=== PATIENT | female | born 1975 | race Caucasian/White ===

== ENCOUNTER 2019-12-04 13:36 | Outpatient (RCR) | payer OTHER, SELFPAY ==
--- NOTE | 2019-08-08 14:39 | PCPTNOTE ---
The treatment documented on this account is a continuation of the treatment documented on visit number [id number]. Please see documentation on both accounts to view progress. The Plan of Care has been transitioned and updated within the new V#. I have addressed and agree with the discipline specific Problems, Interventions, and Goals for the current certification period. Completed interventions, outcomes, and problems have been marked as Inactive to facilitate the copying of the Care plan routine for recurring accounts.
--- NOTE | 2019-08-13 12:25 | PCPTNOTE ---
Pt has cancelled her remaining appt due to increased pain with exercise. Will plan to DC.
--- NOTE | 2019-08-13 15:19 | PCPTNOTE ---
Attending Provider: GUNNER,ADEN Arndt Patient:Nickie Don Date of :1975 Patient has requested her therapy visits to be cancelled due to therapy is not helping her pain. No therapy goals achieved at this time. Thank you for referring this patient to [facility]. Please review, sign, date and return this discharge summary KARL. I have been updated about the patient's current status and I agree with discharge from the above service at this time. Referring Physician Date
== END 2019-12-04 13:37 | disposition home or self-care (01) ==
LOC: ANHPT 13:36
PROVIDERS: PCP Physician Assistant; Visit Provider Physician Assistant
DX: M25.552 Pain in left hip (principal)
CPT/HCPCS: 97035; 97110

== ENCOUNTER 2020-06-14 08:18 | Outpatient (CLI) | payer OTHER, SELFPAY ==
--- NOTE | ~2020-06-14 | XR_ITS ---
XR lumbar spine 2-3V DATE: 06/14/2020 08:43 INDICATION: Low back pain since February. Fell on back. TECHNIQUE: AP, lateral, coned lateral lumbosacral views COMPARISON: None FINDINGS: There is mild levoscoliosis of the thoracolumbar spine. No fracture or bone destruction is evident. The included lower thoracic and lumbar pedicles are intac t. No fracture or bone destruction or spondylolisthesis. Lumbar and lumbosacral interspaces are well preserved. The sacroiliac joints are intact. IMPRESSION: Mild scoliosis Reviewed, dictated and finalized at location A. IMPRESSION: Mild scoliosis
== END 2020-06-14 08:19 | disposition home or self-care (01) ==
PROVIDERS: PCP Physician Assistant; Visit Provider Physician Assistant
DX: M54.5 Low back pain (principal); M41.86 Other forms of scoliosis, lumbar region
CPT/HCPCS: 72100

== ENCOUNTER 2020-08-19 19:00 | Emergency (ER) | payer OTHER, SELFPAY ==
--- NOTE | ~2020-08-19 | CT_ITS ---
EXAMINATION: CT abdomen pelvis w con DATE: 08/19/2020 21:21 INDICATION: Right-sided abdominal pain TECHNIQUE: Computed tomography (CT) of the abdomen and pelvis was performed with 100 cc Omnipaque 350 intravenous contrast. Automated exposure control and iterative reconstruction technique were employe d. Exam dose: 190.99 mGy-cm total exam DLP. COMPARISON: 09/07/2013 CT abdomen pelvis FINDINGS: Bilateral breast implants are again noted. Normal heart size. No pericardial or pleural effusion. The lung bases are clear. The liver, gallbladder, bile ducts, spleen, pancreas, pancreatic duct, and adrenal glands and kidneys are unremarkable. No urinary tract calculus or hydroureteronephrosis. The urinary bladder is unremar kable. Status post hysterectomy. Normal caliber of the abdominal aorta. No intraperitoneal or retroperitoneal or pelvic mass lesion or adenopathy or ascites. Normal retrocecal appendix. There are fluid distended small bowel segments with some air-fluid levels , primarily in the left lower quadrant. No bowel obstruction is evident. Occasional colonic diverticu la; no CT evidence of diverticulitis. No bowel wall thickening, pneumatosis or intraperitoneal free a ir. The tract of a prior fixation device of the proximal right femur is noted. No suspicious osteolytic o r osteoblastic lesions. IMPRESSION: Normal retrocecal appendix There are some fluid distended nondilated small bowel segments with some air-fluid levels, suggesting possible enteritis; no bowel wall thickening, pneumatosis or intraperitoneal free air Status post hysterectomy Bilateral breast implants Occasional colonic diverticula; no CT evidence of diverticulitis Reviewed, dictated and finalized at [facility]. Reviewed, dictated and finalized at location A. 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
[2020-08-19 19:01] VITALS: BP 128/65; PULSE 66; RESP 18; O2SAT 98
--- NOTE | 2020-08-19 19:19 | ED.GENADULT ---
HPI - General Adult General Chief complaint: Abdominal Pain Stated complaint: abd pain Time Seen by Provider: 08/19/20 19:14 Source: RN notes reviewed History of Present Illness HPI narrative: Patient presents emergency department from home via EMS for abdominal pain. Patient states she has sudden onset of right-sided abdominal pain approximately 1 hour ago. The pain is described as sharp and stabbing and does not radiate. Patient states she is feeling fine prior to this sudden onset of the pain denies any previous history of kidney stone patient was given 100 mcg of fentanyl as well as 4 Zofran by EMS. She denies any fevers or chills chest pain shortness of breath or any other symptoms states she has had previous hysterectomy Related Data Allergies Allergy/AdvReac Type Severity Reaction Status Date / Time latex Allergy Severe Rash Verified 08/19/20 19:06 propoxyphene Allergy Severe RASH Verified 08/19/20 19:06 ciprofloxacin Allergy Unknown Unknown Verified 08/19/20 19:06 meperidine Allergy Unknown Unknown Verified 08/19/20 19:06 tramadol Allergy Unknown BLURRY Verified 08/19/20 19:06 VISION Review of Systems Review of Systems: Narrative: Gen.: Denies fevers or chills ENT: Denies congestion Respiratory: Denies shortness of breath or cough CV: Denies chest pain or palpitations GI: See HPI denies burning, urgency, frequency or hematuria Musculoskeletal: Denies back pain or muscle pain Neuro: Denies numbness, tingling, weakness or focal weakness Skin: Denies rash Except as documented, all other systems reviewed and negative PMF Past Medical History Medical History (Updated 08/19/20 @ 22:51 by Roddy Masters DO) Patient denies significant medical history Surgical History Surgical History (Updated 08/19/20 @ 19:20 by Roddy Masters DO) History of hysterectomy Social History Social History (Updated 08/19/20 @ 19:20 by Roddy Masters DO) Smoking status: Current every day smoker Alcohol intake: never Exam Narrative: Exam Narrative: APPEARANCE: Moderate distress from pain, nontoxic HEENT: Normocephalic, atraumatic, OMM RESPIRATORY: No respiratory distress, clear to auscultation bilaterally with no rhonchi wheezing or rales CARDIOVASCULAR: RRR s murmur ABDOMINAL: Soft, nondistended , tender palpation right upper quadrant and right lower quadrant no tenderness left upper quadrant left lower quadrant no rebound or guarding MUSCULOSKELETAl: Moves all extremities. No clubbing, cyanosis or edema. NEURO: Awake and alert. Following commands, speech normal, no focal deficits SKIN:: Warm, dry. Normal Color PSYCHIATRIC: Normal affect/mood Course Course Emergency Course: CT scan patient's symptoms were sudden in onset question possible kidney stone not seen on CT while there is questionable enteritis with sudden onset and no white count but will send patient home with meds and follow-up with primary care physician do not feel antibiotics are indicated at this time Patient states that they are feeling much better at this time. States abdominal pain has improved. Repeat abdominal exam shows the patient's abdomen to be soft with no surgical abdomen present. Discussed with patient results of workup and diagnosis. Discussed need for follow-up with primary care physician, reasons to return to the emergency department in proper use of medication. Patient understands and agrees to current treatment plan Vital Signs Vital signs: Vital Signs Pulse Rate 66 08/19/20 19:01 Respiratory Rate 18 08/19/20 19:01 Blood Pressure 128/65 08/19/20 19:01 Pulse Oximetry 98 08/19/20 19:01 Pulse Rate 76 08/19/20 22:05 Respiratory Rate 14 08/19/20 22:05 Blood Pressure 113/59 L 08/19/20 22:05 Pulse Oximetry 100 08/19/20 22:05 Medical Decision Making MDM Narrative Medical decision making narrative: Patient's abdomen is soft without significant pain or signs of surgical abdomen on serial exams. Lab a
[2020-08-19] MEDS: KETOROLAC 30 MG/ML VIAL (*BKC) IV PUSH (19:40)
[2020-08-19 20:02] LABS: Basophils Absolute Auto 0.1 K/mm3 (0.0-0.1); Basophils Percent Auto 0.8 % (0.2-1.2); Eosinophils Absolute Auto 0.1 K/mm3 (0-0.3); Eosinophils Percent Auto 2.1 % (0-4.4); Hematocrit 35.2 % (37.0-47.0); Hemoglobin 11.8 g/dL (12.0-15.0); Immature Granulocyte Absolute 0.02 K/mm3 (0.00-0.031); Immature Granulocyte Percent A 0.3 % (0-0.5); Lymphocytes Absolute Auto 2.56 K/mm3 (0.9-3.2); Lymphocytes Percent Auto 41.7 % (18.3-44.2); Mean Corpuscular HGB Conc 33.5 g/dl (32-36); Mean Corpuscular Hemoglobin 30.6 pg (26-34); Mean Corpuscular Volume 91.4 fl (80-100); Mean Platelet Volume 9.4 fl (7.4-10.4); Monocytes Absolute Auto 0.3 K/mm3 (0.1-0.6); Monocytes Percent Auto 4.6 % (2.6-8.5); Neutrophils Absolute Auto 3.1 K/mm3 (1.3-6.7); Neutrophils Percent Auto 50.5 % (45.5-73.1); Platelet Count Result 282 k/mm3 (150-375); Red Blood Count 3.85 M/mm3 (4.2-5.4); Red Cell Distribution Width 12.9 % (11.5-14.5); White Blood Count 6.1 K/mm3 (4.5-10.0)
[2020-08-19 20:15] LABS: Alanine Aminotransferase 9 U/L (4-35); Albumin Level 4.2 g/dL (3.5-5.1); Alkaline Phosphatase 61 U/L (38-126); Anion Gap 8 mmol/L (8-16); Aspartate Amino Transferase 27 U/L (14-36); Bilirubin,Total 0.2 mg/dL (0.2-1.3); Blood Urea Nitrogen 12 mg/dL (7-17); Calcium 9.1 mg/dL (8.4-10.2); Carbon Dioxide 26 mmol/L (22-30); Chloride 108 mmol/L (98-107); Estimated CRCL calculation 44 ml/min; Estimated Glomerular Filt Rate 54; Glucose 91 mg/dL (65-105); Lipase 77 U/L (23-300); Potassium 3.8 mmol/L (3.4-5.0); Sodium 142 mmol/L (137-145)
[2020-08-19] MEDS: MORPHINE SULFATE (*CRX) 4 MG/ML INJ IV PUSH (20:45)
--- NOTE | 2020-08-19 20:48 | PC.NURSE ---
morphine given as ordered. patient laying prone on bed playing games on her phone. c/o abdomen pain. SO in room. med given. patient needs to void. refuses to go to restroom. wants to use bedpan herself. bedpan given. call light in reach.
--- NOTE | 2020-08-19 20:57 | PC.NURSE ---
urine specimen collected and sent to lab.
[2020-08-19 21:10] LABS: Add Urine Microscopic? YES; Appearance Urine Clear (Clear); Bacteria Urine Trace /hpf; Bilirubin Urine Negative (Negative); Blood Urine Negative (Negative); Color Urine Straw (Yellow); Glucose Urine UA Negative (Negative); Ketones Urine Negative (Negative); Leukocyte Esterase Ur Negative LEU/UL (Negative); Mucus Urine Rare /lpf; Nitrate Urine Negative (Negative); Protein Urine Negative (Negative); RBC Urine 0-2 /hpf (0-2); Specific Grav Ur 1.008 (1.001-1.035); Squamous Epithelial Cell Urine Moderate /hpf (Few); Urobilinogen Urine Negative mg/dL (<2.0); WBC Urine 0-3 /hpf
[2020-08-19] MEDS: DICYCLOMINE HCL INJ 20 MG/2 ML VIAL IM (22:02)
[2020-08-19 22:05] VITALS: BP 113/59; PULSE 76; RESP 14; O2SAT 100
--- NOTE | 2020-08-19 22:48 | PC.NURSE ---
Dr. Masters at bedside to discuss results with pt.
== END 2020-08-19 23:04 | disposition home or self-care (01) ==
PROVIDERS: Emergency Provider Emergency Medicine; PCP Physician Assistant
DX: R10.9 Unspecified abdominal pain (principal)
CPT/HCPCS: 36415; 74177; 80053; 81001; 83690; 85025; 96372; 96374; 96375; 99284; J0500; J1885; J2270; Q9967

== ENCOUNTER 2021-06-19 12:09 | Emergency (ER) | payer OTHER, SELFPAY ==
--- NOTE | 2021-06-19 12:12 | ED.SKABFB ---
HPI - Skin/Abscess/Foreign Bdy General Chief complaint: Skin/Abscess/Foreign Body Stated complaint: Possible Poison Lulu/Want a shot for poison lulu Time Seen by Provider: 06/19/21 12:12 Source: patient and RN notes reviewed History of Present Illness HPI narrative: Patient is a 46-year-old female who presents the urgent care with complaints of poison lulu to her back, bilateral arms, neck and face. Patient states that she came in contact with her on Tuesday and her physician told her to go to urgent care for her poison lulu shot . Patient states that she cannot take oral prednisone due to severe reaction causing increased blood pressure and heart rate. Patient states that she is always done well with the injections. Patient states that she takes allergy medication 4 times per day and has been using IV dry without much relief. No other acute complaints. No acute distress noted. Patient aware of the plan of care. Some parts of this dictation were generated by voice recognition software and may contain typographical and/or grammatical inaccuracies. Related Data Home Medications Medication Instructions Recorded Confirmed cyclobenzaprine mg 06/19/21 estradiol mg 06/19/21 gabapentin 06/19/21 hydroxyzine pamoate 06/19/21 omeprazole 06/19/21 sumatriptan succinate mg PO 06/19/21 topiramate 06/19/21 trazodone 06/19/21 Allergies Allergy/AdvReac Type Severity Reaction Status Date / Time latex Allergy Severe Rash Verified 06/19/21 12:24 propoxyphene Allergy Severe RASH Verified 06/19/21 12:24 ciprofloxacin Allergy Unknown Unknown Verified 06/19/21 12:24 meperidine Allergy Unknown Unknown Verified 06/19/21 12:24 tramadol Allergy Unknown BLURRY Verified 06/19/21 12:24 VISION Review of Systems Review of Systems: CONSTITUTIONAL: Denies fever, chills, or sweats. EYES: Denies visual changes, redness, or discharge. ENT: Denies rhinorrhea, congestion, sore throat, or otalgia. CARDIOVASCULAR: Denies chest pain, palpitations, or edema. RESPIRATORY: Denies cough or dyspnea. GASTROINTESTINAL: Denies abdominal pain, nausea, vomiting, or diarrhea. GENITOURINARY: Denies dysuria or hematuria. SKIN: Reports of poison lulu to the neck, face, back and bilateral extremities MUSCULOSKELETAL: Denies back pain, joint pain, or myalgia. NEUROLOGIC: Denies headache, numbness, or weakness. All other systems reviewed are negative, except as documented in HPI. [facility] Past Medical History Medical History (Updated 06/19/21 @ 12:36 by JABIER Barton) Patient denies significant medical history Surgical History Surgical History (Updated 08/19/20 @ 19:20 by Roddy Masters DO) History of hysterectomy Social History Social History (Updated 08/19/20 @ 19:20 by Roddy Masters DO) Smoking status: Current every day smoker Alcohol intake: never Comments At the time of my signature, I reviewed and agree with the nursing past medical, surgical, social, and family history. There is no relevant family history pertinent to the patient complaint. Exam Narrative: GENERAL: This is a well-nourished, well-developed patient, in no apparent distress. HEAD: normocephalic, atraumatic. EYES: PERRL. Sclera clear/white. Vision is grossly intact. EARS: External ears normal NOSE: External nose normal with no obvious nasal discharge, nares without redness, no rhinorrhea. THROAT: Mucous membranes moist NECK: Neck supple CARDIOVASCULAR: Regular rate and rhythm without murmurs, gallops, or rubs. RESPIRATORY: Clear to auscultation. Breath sounds equal bilaterally. No wheezes, rales, or rhonchi. SKIN: Scattered papular erythemic raised dermatitis noted to the lower back, chin, and bilateral extremities. Warm, intact with no suspicious lesions or rash, good texture and turgor. NEURO: awake, alert, and oriented to person, place and time. There were no obvious focal neurologic abnormalities. EXTREMITIES: No clubbing, cyanosis, or edema. Cours
[2021-06-19 12:16] VITALS: BP 79/65; PULSE 84; RESP 18; TEMP 36.1; O2SAT 100
[2021-06-19] MEDS: methylPREDNISolone ACETATE 80 MG/ML VIAL IM (12:39)
== END 2021-06-19 13:00 | disposition home or self-care (01) ==
PROVIDERS: Emergency Provider Nurse Practitioner Family; PCP Physician Assistant
DX: L23.7 Allergic contact dermatitis due to plants, except food (principal); F17.200 Nicotine dependence, unspecified, uncomplicated; I10 Essential (primary) hypertension; K21.9 Gastro-esophageal reflux disease without esophagitis; Z85.42 Personal history of malignant neoplasm of other parts of uterus
CPT/HCPCS: 96372; 99213; G0463; J1040

== ENCOUNTER 2023-07-05 18:23 | Outpatient (CLI) | payer SELFPAY ==
--- NOTE | ~2023-07-05 | XR_ITS ---
XR mandible min 4V 07/05/2023 18:50 Indication: Bilateral ear pain for 2 months Procedure: 4 views of the mandible Comparison: No prior studies for comparison. Findings: No fracture, subluxation or dislocation. Temporomandibular joints are symmetric. Mandible i ntact. Mastoids are pneumatized. Paranasal sinuses are pneumatized. Orbits are symmetric. Impression: 1: No significant abnormality of the mandible identified. Reviewed, dictated and finalized at location B. Impression: 1: No significant abnormality of the mandible identified.
== END 2023-07-05 18:24 | disposition home or self-care (01) ==
LOC: CHSIMG 18:28
PROVIDERS: PCP Physician Assistant; Visit Provider Physician Assistant
DX: M26.622 Arthralgia of left temporomandibular joint (principal)
CPT/HCPCS: 70110

== ENCOUNTER 2023-12-30 17:02 | Emergency (ER) | payer OTHER, SELFPAY ==
--- NOTE | ~2023-12-30 | XR_ITS ---
EXAMINATION: XR foot RT min 3V DATE: 12/30/2023 17:35 INDICATION: Right foot pain TECHNIQUE: Dorsoplantar, lateral, and 2 oblique views of the right foot were obtained. COMPARISON: None. FINDINGS: There is lateral subluxation of the second distal phalanx with respect to the middle phalan x with a chronic appearance. No fracture is identified. The joint spaces are unremarkable. IMPRESSION: 1. No acute osseous abnormality. Reviewed, dictated and finalized at location F.
[2023-12-30 17:10] VITALS: BP 132/76; PULSE 84; RESP 16; TEMP 36.6; O2SAT 100
--- NOTE | 2023-12-30 17:18 | ED.UPPEXIN ---
HPI - Extremity Injury (Upper) General Chief Complaint: Extremity Injury, Lower Stated Complaint: Right Foot Injury Time Seen by Provider: 12/30/23 17:18 Source: patient Mode of arrival: ambulatory Limitations: no limitations History of Present Illness HPI narrative: 48-year-old female presents with complaint of pain to lateral aspect right foot. Patient reports history of sciatica and right leg weakness. Patient has a back specialist that she sees for her sciatica. Has orders for MRI and physical therapy. Patient states she is now limping due to right foot pain, concerned for fracture. Range of motion and distal neurovascularly intact. All systems reviewed and negative except as noted above. Related Data Home Medications Medication Instructions Recorded Confirmed cyclobenzaprine 10 mg tablet 10 mg PO BID 12/30/23 12/30/23 famotidine 10 mg tablet 10 mg PO DAILY 12/30/23 12/30/23 hydroxyzine HCl 25 mg tablet 1 mg PO QID 12/30/23 12/30/23 meloxicam 15 mg tablet 15 mg PO DAILY 12/30/23 12/30/23 ondansetron 4 mg disintegrating 4 mg translingual DAILY 12/30/23 12/30/23 tablet paroxetine HCl 20 mg tablet 20 mg PO DAILY 12/30/23 12/30/23 topiramate 100 mg tablet See Rx Instructions .Route .COMPLEX 12/30/23 12/30/23 trazodone 100 mg tablet 100 mg PO HS 12/30/23 12/30/23 ubrogepant 50 mg tablet (Ubrelvy) 50 mg PO DAILY 12/30/23 12/30/23 Allergies Allergy/AdvReac Type Severity Reaction Status Date / Time latex Allergy Severe Rash Verified 12/30/23 17:16 propoxyphene Allergy Severe RASH Verified 12/30/23 17:16 ciprofloxacin Allergy Unknown Rash Verified 12/30/23 17:37 meperidine Allergy Unknown Unknown Verified 12/30/23 17:16 tramadol Allergy Unknown BLURRY Verified 12/30/23 17:16 VISION buspirone Allergy Unknown Verified 12/30/23 17:37 prednisone Allergy Unknown Verified 12/30/23 17:39 Review of Systems Review of Systems: CONSTITUTIONAL: Denies fever, chills, or sweats. EYES: Denies visual changes, redness, or discharge. ENT: Denies rhinorrhea, congestion, sore throat, or otalgia. CARDIOVASCULAR: Denies chest pain, palpitations, or edema. RESPIRATORY: Denies cough or dyspnea. GASTROINTESTINAL: Denies abdominal pain, nausea, vomiting, or diarrhea. GENITOURINARY: Denies dysuria or hematuria. SKIN: Denies rash or itching. MUSCULOSKELETAL: Reports pain and swelling to right foot. NEUROLOGIC: Denies headache, numbness, or weakness. PSYCHIATRIC: Denies anxiety or depression. All other systems reviewed are negative, except as documented in HPI. [facility] Past Medical History Medical History (Updated 12/30/23 @ 18:07 by Barbie Ellison NP) Patient denies significant medical history Surgical History Surgical History (Updated 08/19/20 @ 19:20 by Roddy Masters, DO) History of hysterectomy Social History Social History (Updated 08/19/20 @ 19:20 by Roddy Masters, DO) Smoking status: Current every day smoker Alcohol intake: never Comments At time of signature, agree with nursing past medical, surgical, social and family history. There is no relevant family history pertinent to the presenting complaint. Exam Narrative: GENERAL: This is a well-nourished, well-developed patient, in no apparent distress. HEAD: normocephalic, atraumatic. EYES: PERRL. Sclera clear/white. Vision is grossly intact. EARS: External ears normal NOSE: External nose normal NECK: Neck supple, non-tender without lymphadenopathy, masses or thyromegaly. CARDIOVASCULAR: Regular rate and rhythm without murmurs, gallops, or rubs. RESPIRATORY: Clear to auscultation. Breath sounds equal bilaterally. No wheezes, rales, or rhonchi. SKIN: warm, Dry, intact with no suspicious lesions or rash, good texture and turgor. NEURO: awake, alert, and oriented to person, place and time. There were no obvious focal neurologic abnormalities. EXTREMITIES: tenderness to lateral aspect R foot [id number] and 4th metatarsal without deform
[2023-12-30 17:31] VITALS: BP 132/76; PULSE 84; RESP 16; TEMP 36.6; O2SAT 100
== END 2023-12-30 18:10 | disposition home or self-care (01) ==
PROVIDERS: Emergency Provider Nurse Practitioner Family; PCP Physician Assistant
DX: S93.601A Unspecified sprain of right foot, initial encounter (principal); X58.XXXA Exposure to other specified factors, initial encounter
CPT/HCPCS: 73630; 99213; G0463

== ENCOUNTER 2024-06-18 08:28 | Outpatient (RCR) | payer OTHER, SELFPAY ==
--- NOTE | 2024-06-18 09:41 | PTOPEVAL1 ---
Assessment and note entered by Fermin Harley Evaluation Information Assessment Status Evaluation Diagnosis ankle instability M24.871 Onset 03/14/24 Subjective Information Pt. reports that her sciatic nerve is pinched. She reports that she has been developing problems at the right ankle over the past several months. She states that the ankle gives out frequently. She states that she had recent x-ray of her back that revealed significant arthritic change. She reports that she has broken her feet in the past due to rolling over the right ankle. She states that she has constant pain is noted is noted in the right foot and ankle. She states that she does not use a brace. She states that she works 8 -16 hours a week, and is limited in hours due to pain in her back and ankle. She states that she can stand for 4 hours straight, but is crying by the end of the work day. She states that her goal is to reduce her ankle pain and improve strength. Reported Pain Level Pain Score 10,0: Self Report Assessment PT Clinical Summary Pt. is a 49 year old female who enters the clinic with ankle instability. She demonstrates notable weakness at the right ankle, as well as impaired gait leading to functional decline. Pt. presentation this date indicates the need for continued skilled PT in order to allow the pt. to be able to complete all IADL's without limitation. Plan of Care Interventions Electrical Stimulation,Gait Training,Hot Pack/Cold Pack,Manual Therapy,Neuro Re-education,Patient/ Caregiver Educati,Therapeutic Activities, Therapeutic Exercise PT Services Indicated Yes Treatment Frequency and 2x/week x 8 visits Duration These treatments will address the objective and functional deficits as defined above. The patient will be advanced safely and appropriately in order for the patient to progress towards his/her prior level of function. Additional exercises will be introduced and as well as a comprehensive home exercise program upon discharge, if needed, ?to ensure carryover of functional gains achieved in the clinic. This treatment plan has been reviewed and agreement upon by the patient.
--- NOTE | 2024-06-18 09:42 | OPREHPOC ---
Outpatient Therapy Plan of Care This is a Multidisciplinary Plan of Care that may contain components documented by all disciplines (PT, OT, and ST.) PT Problem 1 PT Problem #1 Knowledge Deficit PT Goal 1 Goal / Goal Update pt. will be independent with a HEP addressing strength and stability at the right ankle. Target Visit 2 PT Problem 2 PT Problem #2 Pain PT Goal 1 Goal / Goal Update Pt. will reports pain levels at 5/10 at worst with prolonged standing activities. Target Visit 8 PT Problem 3 PT Problem #3 Impaired Strength PT Goal 1 Goal / Goal Update Pt. will demonstrate 5/5 gross right ankle strength with manual muscle testing. Pt. will be able to maintain SLS on the right for 1 minute without LOB. Target Visit 8 PT Problem 4 PT Problem #4 Impaired Functional Mobil PT Goal 1 Goal / Goal Update Pt. will score a total of 40/80 on the LEFS indicating significant pain reduction and functional improvement. Target Visit 8
== END 2024-09-16 23:59 | disposition home or self-care (01) ==
LOC: CHSPT 08:28
PROVIDERS: Visit Provider Podiatrist Foot & Ankle Surgery
DX: M24.871 Other specific joint derangements of right ankle, not elsewhere classified (principal)
CPT/HCPCS: 97161

== ENCOUNTER 2024-08-31 10:48 | Outpatient (CLI) | payer OTHER, SELFPAY ==
--- NOTE | ~2024-08-31 | XR_ITS ---
EXAMINATION: XR humerus LT, XR hand LT min 3V, XR forearm LT 2V DATE: 08/31/2024 11:13 INDICATION: Left arm, wrist and hand pain TECHNIQUE: 1. Internal and Rotated views of the left humerus were obtained. 2. AP and lateral views of the left forearm were obtained. 3. Dorsal palmar, lateral and oblique views of the left hand were obtained. COMPARISON: None. FINDINGS: Postoperative change of and first carpal metacarpal suspension arthroplasty. Vascular the carpus with resection of the trapezium, suture anchor at the base of the first metacarpal and metallic buttons a t the radial aspect of the base of the first metacarpal and dorsal aspect of the base of the second m etacarpal. Bone alignment of the left upper limb from the shoulder through the hand is otherwise norm al. No fractures. Joint spaces are relatively preserved throughout. No erosions to suggest inflammato ry arthritis. Soft tissues are unremarkable with no elbow joint effusion. IMPRESSION: 1. Postoperative change of trapezial resection and left first carpal metacarpal suspension arthroplas ty. Otherwise unremarkable radiographs of the left upper arm, forearm and hand. Reviewed, dictated and finalized at location B. MACHINE MECHANIC IMPRESSION: 1. Postoperative change of trapezial resection and left first carpal metacarpal suspension arthroplasty. Otherwise unremarkable radiographs of the left upper arm, forearm and hand. IMPRESSION: 1. Postoperative change of trapezial resection and left first carpal metacarpal suspension arthroplasty. Otherwise unremarkable radiographs of the left upper arm, forearm and hand.
[2024-08-31 11:31] LABS: Hematocrit 35.2 % (35.0-49.0); Hemoglobin 11.8 g/dL (12.0-15.0); Mean Corpuscular HGB Conc 33.5 g/dL (32-36); Mean Corpuscular Volume 89.6 fL (78.0-102.0); Mean Platelet Volume 9.1 fl (9.2-11.8); Platelet Count Result 283 K/mm3 (150-420); Red Blood Count 3.93 M/mm3 (4.20-5.40); Red Cell Distribution Width 12.3 % (11.6-14.4); White Blood Count 6.9 K/mm3 (4.8-10.8)
[2024-08-31 12:06] LABS: Alanine Aminotransferase 14 U/L (14-59); Albumin Level 3.8 g/dL (3.4-5.0); Alkaline Phosphatase 77 U/L (46-116); Anion Gap 8 mmol/L (4-12); Aspartate Amino Transferase 24 U/L (15-37); Bilirubin,Total 0.3 mg/dL (0.00-1.00); Blood Urea Nitrogen 14 mg/dL (7-18); Calcium 8.9 mg/dL (8.5-10.1); Carbon Dioxide 28 mmol/L (21-32); Chloride 106 mmol/L (98-108); Cholesterol 241 mg/dL (0-200); Estimated Glomerular Filt Rate 37; Free T4 Free Thyroxine 0.77 ng/dL (0.76-1.46); Glucose 83 mg/dL (70-99); HDL Direct 49 mg/dL (40-60); LDL Cholesterol Calculated 169 mg/dL (<130); Osmolality Calculated 293 mOsm/kg (285-295); Potassium 4.2 mmol/L (3.5-5.1); Sodium 142 mmol/L (136-145); Thyroid Stimulating Hormone 3.27 uIU/mL (0.36-3.74); Total Protein 6.6 g/dL (6.4-8.2); Triglycerides 116 mg/dL (0-150)
== END 2024-08-31 10:49 | disposition home or self-care (01) ==
PROVIDERS: PCP Physician Assistant; Visit Provider Physician Assistant
DX: M79.602 Pain in left arm (principal); Z98.890 Other specified postprocedural states
CPT/HCPCS: 36415; 73060; 73090; 73130; 80053; 80061; 84439; 84443; 85027